=== PATIENT | male | born 1990 | race Caucasian/White ===

== ENCOUNTER 2022-03-19 16:08 | Emergency (ER) | payer SELFPAY ==
[~2022-03-19] VITALS: Ht 188 cm; Wt 76.1 kg
[2022-03-19 17:16] VITALS: BP 108/64
[2022-03-19 18:56] LABS: *AMPHETAMINES SCREEN URINE NEGATIVE (NEGATIVE); *BARBITURATES SCREEN URINE NEGATIVE (NEGATIVE); *BENZODIAZEPINES SCREEN URINE NEGATIVE (NEGATIVE); *COCAINE SCREEN URINE NEGATIVE (NEGATIVE); CANNABINOID URINE SCREEN PRESUMTIVE POSITIVE (NEGATIVE); METHADONE URINE SCREEN NEGATIVE (NEGATIVE); OPIATES URINE SCREEN NEGATIVE (NEGATIVE); PHENCYCLIDINE URINE SCREEN NEGATIVE (NEGATIVE)
== END 2022-03-19 21:30 | disposition left against medical advice (07) ==
LOC: ER 16:08
DX: R68.89 Other general symptoms and signs (principal)
CPT/HCPCS: 80305; 99283